=== PATIENT | male | born 1995 | race Caucasian/White ===

== ENCOUNTER 2018-04-04 03:01 | Emergency (ER) | payer OTHER ==
--- NOTE | 2018-04-04 03:59 | EDPHY ---
H & P Stated Complaint: left eyebrow LAC Time Seen by Provider: 04/04/18 03:10 HPI/ROS: HPI The patient presents with left eyebrow laceration which occurred about 40 min prior to arrival. He hit his head on a wooden shelf and sustained this laceration. He did not injure his eye. He does not have any loss of consciousness, headache, vomiting.. REVIEW OF SYSTEMS Constitutional: No fever, no chills. Musculoskeletal: No back pain. Skin: No rashes. Neurological: No headache. PMHx: Healthy Soc Hx: Here with a friend PHYSICAL General Appearance: Alert, no distress Eyes: Pupils equal and round no pallor or injection ENT, Mouth: Mucous membranes moist Respiratory: Breathing comfortably Neurological: A&O, moves all extremities Skin: V-shaped 2 cm gaping laceration in the mid left eyebrow, frontalis muscle is intact Musculoskeletal: Neck is supple non tender Extremities: symmetrical, full range of motion Psychiatric: Patient is oriented X 3, there is no agitation Source: Patient Exam Limitations: No limitations - Personal History Current Tetanus Diphtheria and Acellular Pertussis (TDAP): Unsure - Medical/Surgical History Hx Asthma: No Hx Chronic Respiratory Disease: No Hx Diabetes: No Hx Cardiac Disease: No Hx Renal Disease: No Hx Cirrhosis: No Hx Alcoholism: No Hx HIV/AIDS: No Hx Splenectomy or Spleen Trauma: No Other PMH: tonsillectomy - Social History Smoking Status: Never smoked Constitutional: Initial Vital Signs Temperature (C) 36.8 C 04/04/18 03:03 Heart Rate 76 04/04/18 03:03 Respiratory Rate 20 04/04/18 03:03 Blood Pressure 128/49 H 04/04/18 03:03 O2 Sat (%) 94 04/04/18 03:03 O2 Delivery Mode Room Air Allergies/Adverse Reactions: No Known Allergies Allergy (Verified 04/04/18 03:03) Home Medications: Medication Instructions Recorded NK [No Known Home Meds] 04/04/18 Medical Decision Making Procedures: LACERATION REPAIR Procedure: Laceration repair. Verbal consent was obtained from the patient. The v-shaped 2 cm laceration on the left eyebrow was anesthetized using bupivacaine with epinephrine. The wound was scrubbed, draped and explored to its base with a gloved finger. There were no deep structures involved. No tendon injury was identified. . The wound was repaired with deep dermal sutures, total of 2 4-0 Vicryl, followed by combination of horizontal mattress and simple interrupted sutures using 5-0 fast -absorbing a got. The wound repair was complex. The procedure was performed by myself. Differential Diagnosis: 23-year-old man with eyebrow laceration to his left eyebrow which he sustained about 40 min prior to arrival. He does not appear to have any muscle, tendon, neurologic damage. Plan to repair his laceration. I do not suspect concussion as he does not have any headache or loss of consciousness. He does not meet criteria for CT scan of his head by nexus 2 criteria. Departure - Departure Disposition: Home, Routine, Self-Care Clinical Impression: Laceration of eyebrow, left Condition: Good Instructions: Care For Your Absorbable Stitches (ED), Facial Laceration (ED) Additional Instructions: Your stitches should fall out within 5-7 days. If they do not, you should return to the emergency department for us to remove them. Referrals: NONE *PRIMARY CARE P,. [Primary Care Provider] - As per Instructions
[2018-04-04 04:10] VITALS: BP 118/68
== END 2018-04-04 04:10 | disposition home or self-care (01) ==
PROC: 08QPXZZ Repair Left Upper Eyelid, External Approach (ICD-10-PCS; principal; 2018-04-04)
DX: S01.112A Laceration without foreign body of left eyelid and periocular area, initial encounter (principal); W22.03XA Walked into furniture, initial encounter